=== PATIENT | male | born 1935 | race Caucasian/White ===

== ENCOUNTER 2018-10-15 13:04 | Emergency (ER) | payer MEDICARE, MEDICAID ==
[~2018-10-15] VITALS: Ht 160 cm; Wt 65.8 kg
[~2018-10-15 13:04] MED LIST: ASPI-495 PO; ATOR20TA PO; DONE5TAB8 PO; FAMO-39 PO; GABA-532 PO; PYRI50TA9 PO
[2018-10-15 13:40] VITALS: BP 162/78
[2018-10-15] MEDS ORDERED: ACETAMINOPHEN 325 MG TABLET PO ONE (14:00)
[2018-10-15] MEDS ORDERED: ACETAMINOPHEN 325 MG TABLET ONE (14:14)
--- NOTE | 2018-10-15 16:51 | NUR ---
Patient discharged to home in stable condition. Written and verbal after care instructions given. Patient verbalizes understanding of instruction.
== END 2018-10-15 16:50 | disposition home or self-care (01) ==
LOC: ER 13:06
DX: R51 Headache (principal); J06.9 Acute upper respiratory infection, unspecified; G30.9 Alzheimer's disease, unspecified; G89.29 Other chronic pain; M25.569 Pain in unspecified knee; Z79.82 Long term (current) use of aspirin
CPT/HCPCS: 70450; 71045; 87804 ×2; 99284; A4606; 87400